=== PATIENT | male | born 1990 | race Caucasian/White ===

== ENCOUNTER 2020-04-08 01:13 | Emergency (ER) | payer OTHER ==
[~2020-04-08] VITALS: Ht 170.2 cm; Wt 63.3 kg
--- NOTE | 2020-04-08 01:26 | NUR ---
pt ambulated back to room with a smooth and steady gait, NAD, RESP WNL, P/W/D, VSS, call light on lap, given warm blanket for comfort, WCTM.
--- NOTE | 2020-04-08 01:27 | NUR ---
Dave HARRY at [facility]
[2020-04-08] MEDS ORDERED: IBUPROFEN 600 MG TABLET PO ONE (01:30)
[2020-04-08] MEDS ORDERED: IBUPROFEN 600 MG TABLET ONE (01:33)
--- NOTE | 2020-04-08 02:16 | NUR ---
pt resting in gurney, eyes closed, NAD ,VSS, Skin oclor WNL warm and dry, WCTM. waiting on rad results.
--- NOTE | 2020-04-08 03:16 | NUR ---
Late Entry: pt resting in gurney, eyes closed, NAD ,VSS, Skin color WNL warm and dry, WCTM. waiting on rad results.
[2020-04-08 03:59] VITALS: BP 97/55
--- NOTE | 2020-04-08 04:00 | NUR ---
Patient given discharge instructions and they have confirmed that they understand the instructions. Patient ambulatory with steady gait. Denies additional questions at this time. NAD, RESP WNL, MAEx4, FCS no SOB, skin color WNL warm and dry. Pt left with all personal belongings.
== END 2020-04-08 04:01 | disposition home or self-care (01) ==
LOC: ED 02:25
DX: M25.572 Pain in left ankle and joints of left foot (principal)
CPT/HCPCS: 99283

== ENCOUNTER 2020-04-08 20:19 | Emergency (ER) | payer MEDICAID, OTHER ==
[~2020-04-08] VITALS: Ht 170.2 cm; Wt 63.3 kg
[2020-04-08 20:27] VITALS: BP 126/74
[2020-04-08] MEDS ORDERED: ACETAMINOPHEN 325 MG TABLET PO ONE (21:30)
[2020-04-08] MEDS ORDERED: IBUPROFEN 800 MG TABLET PO ONE (21:30)
[2020-04-08] MEDS ORDERED: ACETAMINOPHEN 325 MG TABLET ONE (21:46)
[2020-04-08] MEDS ORDERED: IBUPROFEN 800 MG TABLET ONE (21:46)
--- NOTE | 2020-04-08 22:04 | NUR ---
PT MEDICATED PER EMAR AND PROVIDED CANE. DC EDUCATION PROVIDED, PT DEMONSTRATES UNDERSTANDING. PT AMBULATED STEADILY TO DC WITH RN. DRESSED APPROPRIATELY FOR WEATHER.
== END 2020-04-08 22:05 | disposition home or self-care (01) ==
LOC: ED 21:40
DX: S86.212A Strain of muscle(s) and tendon(s) of anterior muscle group at lower leg level, left leg, initial encounter (principal); X58.XXXA Exposure to other specified factors, initial encounter; Y93.89 Activity, other specified; Y92.89 Other specified places as the place of occurrence of the external cause; Y99.8 Other external cause status
CPT/HCPCS: 99283

== ENCOUNTER 2020-04-11 19:32 | Emergency (ER) | payer MEDICAID ==
[~2020-04-11] VITALS: Ht 172.7 cm; Wt 98.1 kg
[2020-04-11 19:41] VITALS: BP 116/61
== END 2020-04-11 21:00 | disposition home or self-care (01) ==
LOC: ED 20:11
DX: M25.572 Pain in left ankle and joints of left foot (principal)
CPT/HCPCS: 99282

== ENCOUNTER 2020-08-31 16:37 | Emergency (ER) | payer MEDICAID ==
[~2020-08-31] VITALS: Ht 172.7 cm; Wt 77.2 kg
[2020-08-31 17:28] VITALS: BP 153/87
--- NOTE | 2020-08-31 19:40 | NUR ---
pt to [facility] from [facility], dr mcclellan assessed and treated pt. pt has dressing to right thumb and educated on skin care/ s/s of infxt and dc instructions given
== END 2020-08-31 19:41 | disposition home or self-care (01) ==
LOC: ED 19:35
DX: S60.011A Contusion of right thumb without damage to nail, initial encounter (principal); W23.0XXA Caught, crushed, jammed, or pinched between moving objects, initial encounter; Y93.89 Activity, other specified; Y92.89 Other specified places as the place of occurrence of the external cause; Y99.8 Other external cause status
CPT/HCPCS: 11740; 99284